=== PATIENT | female | born 1935 | race Asian ===

== ENCOUNTER 2019-07-17 15:05 | Inpatient (IN) | payer MEDICAID, MEDICARE ==
[~2019-07-17] VITALS: Ht 152.4 cm; Wt 37.6 kg
[~2019-07-17 15:05] MED LIST: ACET-2067 PO; ALBU8.5H8 IH; AMLO5TAB9 PO; BISA10SU95 RC; CARB1TAB39 PO; CARV3.12 PO; CLON0.1T PO; FURO-152 PO; HUMULIN R SQ; HYDR-3326 PO; IBUP-1955 PO; MAG-149 PO; MAGN400O6 PO; NA P133E RC; PANT40TA4 PO; SELE5CAP PO; VALS80TA2 PO
[2019-07-17 15:39] LABS: BASOPHILS # (AUTO) 0.1 K/uL (0.0-8.0); BASOPHILS % (AUTO) 0.8 % (0.0-2.0); EOSINOPHILS % (AUTO) 0.4 % (0.0-7.0); HEMATOCRIT 39.2 % (31.2-41.9); HEMOGLOBIN 13.3 g/dL (10.9-14.3); LYMPHOCYTES # (AUTO) 1.4 K/uL (20.0-40.0); LYMPHOCYTES % (AUTO) 16.1 % (20.5-51.5); MEAN CORPUSCULAR HEMOGLOBIN 29.6 uug (24.7-32.8); MEAN CORPUSCULAR HGB CONC 34 g/dL (32.3-35.6); MEAN CORPUSCULAR VOLUME 86.9 fL (75.5-95.3); MONOCYTES # (AUTO) 0.7 K/uL (2.0-10.0); MONOCYTES % (AUTO) 7.9 % (0.0-11.0); NEUTROPHILS # (AUTO) 6.7 K/uL (1.8-8.9); NEUTROPHILS % (AUTO) 74.8 % (38.5-71.5); PLATELET COUNT (AUTO) 214 K/uL (179-408); RED BLOOD CELL COUNT(AUTO) 4.51 MIL/uL (3.63-4.92)
[2019-07-17 15:51] LABS: CREATININE 1.2 mg/dL (0.6-1.3); POTASSIUM 3.6 mmol/L (3.5-5.1)
[2019-07-17 16:06] LABS: BILIRUBIN,DIRECT 0.1 mg/dL (0.0-0.2); BILIRUBIN,TOTAL 0.3 mg/dL (0.2-1.0); TOTAL PROTEIN, SERUM 7.8 g/dL (6.4-8.2)
[2019-07-17] MEDS ORDERED: LORA-258 PO (16:06)
[2019-07-17] MEDS ORDERED: HYDR-4384 PO (16:06)
[2019-07-17] MEDS ORDERED: ATROPINE SL (16:06)
[2019-07-17] MEDS ORDERED: RANI-655 PO (16:06)
[2019-07-17] MEDS ORDERED: LOSA25TA27 PO (16:06)
[2019-07-17] MEDS ORDERED: QUET25TA PO (16:06)
[2019-07-17] MEDS ORDERED: AMLO5TAB9 PO (16:06)
[2019-07-17] MEDS ORDERED: QUET50TA PO (16:06)
[2019-07-17] MEDS ORDERED: CARV6.252 PO (16:06)
[2019-07-17] MEDS ORDERED: ZOLP10TA2 PO (16:06)
[2019-07-17] MEDS ORDERED: DOCU250C88 PO (16:06)
[2019-07-17] MEDS ORDERED: ACET650S13 RC (16:06)
[2019-07-17] MEDS ORDERED: SUCR1ORA4 PO (16:06)
[2019-07-17] MEDS ORDERED: DEXL60CA3 PO (16:06)
[2019-07-17] MEDS ORDERED: SENN-261 PO (16:06)
[2019-07-17] MEDS ORDERED: CELE200C PO (16:06)
[2019-07-17] MEDS ORDERED: VALS160T29 PO (16:06)
[2019-07-17] MEDS ORDERED: MORP20SO PO (16:06)
[2019-07-17] MEDS ORDERED: GLUC1KIT IJ (16:06)
[2019-07-17] MEDS ORDERED: FURO-152 PO (16:06)
[2019-07-17] MEDS ORDERED: PROC25SU29 RC (16:06)
[2019-07-17] MEDS ORDERED: LORA-259 PO (16:06)
[2019-07-17] MEDS ORDERED: MIRT15TA7 PO (16:06)
[2019-07-17] MEDS ORDERED: NYST15CR TP (16:06)
[2019-07-17] MEDS ORDERED: IBUP-1955 PO (16:06)
[2019-07-17] MEDS ORDERED: levoFLOXacin 750 MG/D5W 150 ML PIGGYBACK IV ONE (16:15)
[2019-07-17] MEDS ORDERED: levoFLOXacin 750MG/D5W 150 ML IV ONE (16:35)
--- NOTE | 2019-07-17 16:41 | NUR ---
Patient's [email or web address]
--- NOTE | 2019-07-17 18:16 | NUR ---
Patient is incontinent of urine , ER Dr Verde notified. No orders for straight catheter, Dr Verde is aware.
--- NOTE | 2019-07-17 18:21 | NUR ---
.Betzaida-anal care done. Patient will leave ER as soon as possible
[2019-07-17 19:50] VITALS: BP 115/89
[2019-07-17] MEDS ORDERED: LORAZEPAM 0.5 MG TABLET PO PRN (21:45)
[2019-07-17] MEDS ORDERED: ZOLPIDEM 5 MG TABLET PO PRN (21:45)
[2019-07-17] MEDS ORDERED: ACETAMINOPHEN 325 MG TABLET PO PRN (21:45)
[2019-07-18 04:46] VITALS: BP 132/62
[2019-07-18 05:58] LABS: BASOPHILS % (AUTO) 0.3 % (0.0-2.0); EOSINOPHILS % (AUTO) 0.3 % (0.0-7.0); HEMOGLOBIN 13.2 g/dL (10.9-14.3); LYMPHOCYTES # (AUTO) 1.1 K/uL (20.0-40.0); LYMPHOCYTES % (AUTO) 16.7 % (20.5-51.5); MEAN CORPUSCULAR HEMOGLOBIN 29.4 uug (24.7-32.8); MEAN CORPUSCULAR HGB CONC 34 g/dL (32.3-35.6); MEAN CORPUSCULAR VOLUME 86.8 fL (75.5-95.3); MONOCYTES # (AUTO) 0.7 K/uL (2.0-10.0); MONOCYTES % (AUTO) 9.7 % (0.0-11.0); PLATELET COUNT (AUTO) 198 K/uL (179-408); RED BLOOD CELL COUNT(AUTO) 4.49 MIL/uL (3.63-4.92); WHITE BLOOD COUNT (AUTO) 6.8 K/uL (3.8-11.8)
[2019-07-18 06:25] LABS: CREATININE 1.1 mg/dL (0.6-1.3); MAGNESIUM 2.1 mg/dL (1.8-2.4); PHOSPHOROUS 3.2 mg/dL (2.5-4.9); POTASSIUM 3.9 mmol/L (3.5-5.1)
[2019-07-18] MEDS ORDERED: ZOLPIDEM 5 MG TABLET PO PRN (07:15)
[2019-07-18] MEDS ORDERED: PROCHLORPERAZINE MALEATE 25 MG SUPP.RECT RC PRN (07:30)
[2019-07-18] MEDS ORDERED: LORAZEPAM 0.5 MG TABLET PO PRN (07:30)
[2019-07-18] MEDS ORDERED: NYSTATIN CREAM 30 GM TUBE TP PRN (07:30)
[2019-07-18] MEDS ORDERED: IBUPROFEN 600 MG TABLET PO PRN (07:30)
[2019-07-18] MEDS ORDERED: ACETAMINOPHEN 650 MG SUPP.RECT RC PRN (07:30)
[2019-07-18] MEDS ORDERED: MORPHINE SULFATE 20 MG/1 ML ORAL LIQ. PO PRN (07:30)
[2019-07-18] MEDS ORDERED: ATROPINE SULFATE 1% OPHT DROP 2 ML SL PRN (07:30)
[2019-07-18] MEDS ORDERED: HYDROCODONE/APAP 5-325MG TABLET PO PRN (07:30)
[2019-07-18] MEDS ORDERED: FLEET ENEMA 133 ML BOTTLE RC PRN (07:30)
[2019-07-18] MEDS ORDERED: BISACODYL 10 MG SUPP.RECT RC PRN (07:30)
[2019-07-18] MEDS ORDERED: GLUCAGON,HUMAN RECOMBINANT 1 MG VIAL IM PRN (07:30)
--- NOTE | 2019-07-18 07:39 | NUR ---
Received patient in bed, asleep, No signs of Distress noted. No SOB. No signs of Pain or discomfort. Kept the bed in lowest position, call light within easy reach. Will continue to monitor.
[2019-07-18] MEDS: SUCRALFATE 1 G/10 ML LIQUID UDC PO SCH (07:51)
[2019-07-18] MEDS: PANTOPRAZOLE SODIUM 40 MG TABLET.DR PO SCH (07:52)
[2019-07-18] MEDS: CARVEDILOL 6.25 MG TABLET PO SCH ×2 (08:08→17:13)
[2019-07-18] MEDS: FUROSEMIDE 20 MG TABLET PO SCH (08:08)
[2019-07-18] MEDS: DOCUSATE SODIUM 250 MG CAPSULE PO SCH ×2 (08:08→16:52)
[2019-07-18] MEDS: SENNOSIDES 1 TABLET PO SCH ×2 (08:09→20:41)
[2019-07-18] MEDS ORDERED: CELECOXIB 200 MG CAPSULE PO SCH (08:58)
[2019-07-18] MEDS ORDERED: CARBIDOPA/LEVODOPA CR 25-100MG TABLET.SA PO SCH (09:00)
[2019-07-18] MEDS ORDERED: LOSARTAN POTASSIUM 25 MG TABLET PO SCH (09:00)
[2019-07-18] MEDS ORDERED: QUETIAPINE FUMARATE 25 MG TABLET PO SCH (09:00)
[2019-07-18] MEDS ORDERED: VALSARTAN 160 MG TABLET PO SCH (09:00)
[2019-07-18] MEDS ORDERED: LOSARTAN POTASSIUM 50 MG TABLET PO SCH (09:00)
[2019-07-18] MEDS: AMLODIPINE 5 MG TABLET PO SCH (09:18)
[2019-07-18] MEDS: CARBIDOPA/LEVODOPA 25-100MG TABLET PO SCH ×2 (09:18→16:52)
[2019-07-18] MEDS: LORAZEPAM 1 MG TABLET PO SCH ×2 (11:09→17:12)
[2019-07-18 12:00] VITALS: BP 143/72
[2019-07-18 16:50] LABS: *BILIRUBIN,URIN NEGATIVE (NEGATIVE); *BLOOD, URINE TRACE (NEGATIVE); *CLARITY,URINE CLEAR (CLEAR); *COLOR,URINE YELLOW (YELLOW); *KETONES,URINE NEGATIVE (NEGATIVE); *UROBILINOGEN,URINE 0.2 E.U./dl (NORMAL); LEUKOCYTE ESTERASE ,URINE NEGATIVE (NEGATIVE); NITRITE, URINE NEGATIVE (NEGATIVE); UGLUCOSE NEGATIVE (NEGATIVE)
[2019-07-18] MEDS: QUETIAPINE FUMARATE 25 MG TABLET PO SCH (16:52)
[2019-07-18 16:59] LABS: BACTERIA,URINE NONE SEEN /HPF (NONE SEEN); RBC,URINE 0-3 /HPF (0-3); SQUAMOUS EPITHELIAL CELL,UR FEW /HPF (NONE SEEN); WBC,URINE NONE SEEN /HPF (0-3)
--- NOTE | 2019-07-18 18:14 | NUR ---
Patient in bed, awake and responsive. No signs of distress noted. No SOB. saturating 96% on Room Air. No complain of Pain or discomfort. All due medications given as ordered. kept clean and comfortable. Kept the call light within easy reach. Will endorse to Oncoming Nurse.
--- NOTE | 2019-07-18 20:00 | NUR ---
RECEIVED PATIENT AWAKE IN BED. ALERT TO SELF ONLY. CONFUSED AND DISORIENTED. SON AT BEDSIDE. PATIENT ON ISOLATION FOR DROPLET PRECAUTIONS. VSS. H/L INTACT AND PATENT. BED ALARM ON. CALL LIGHT IN REACH. ALL NEEDS ATTENDED. WILL CONTINUE TO MONITOR AND ASSESS,
[2019-07-18 20:44] VITALS: BP 155/75
[2019-07-18] MEDS ORDERED: ZOLPIDEM 5 MG TABLET PO SCH (21:00)
[2019-07-18] MEDS ORDERED: FAMOTIDINE 20 MG TABLET PO SCH (21:00)
[2019-07-18] MEDS ORDERED: MIRTAZAPINE 15 MG TABLET PO SCH (21:00)
[2019-07-19] MEDS: LORAZEPAM 1 MG TABLET PO SCH ×3 (05:35→12:00)
--- NOTE | 2019-07-19 05:36 | NUR ---
PATIENT ASLEEP IN BED. SLEPT WELL THROUGHOUT THE NIGHT. VSS. BED ALARM ON. ALL NEEDS ATTENDED. WILL CONTINUE TO MONITOR AND ASSESS,
[2019-07-19 05:43] VITALS: BP 142/60
[2019-07-19] MEDS: PANTOPRAZOLE SODIUM 40 MG TABLET.DR PO SCH (06:28)
[2019-07-19] MEDS: AMLODIPINE 5 MG TABLET PO SCH (08:34)
[2019-07-19] MEDS: SENNOSIDES 1 TABLET PO SCH (08:34)
[2019-07-19] MEDS: CARBIDOPA/LEVODOPA 25-100MG TABLET PO SCH (08:35)
[2019-07-19] MEDS: CARVEDILOL 6.25 MG TABLET PO SCH (08:35)
[2019-07-19] MEDS: SUCRALFATE 1 G/10 ML LIQUID UDC PO SCH (08:36)
[2019-07-19] MEDS: DOCUSATE SODIUM 250 MG CAPSULE PO SCH (08:36)
[2019-07-19] MEDS: FUROSEMIDE 20 MG TABLET PO SCH (08:36)
[2019-07-19] MEDS: QUETIAPINE FUMARATE 25 MG TABLET PO SCH (08:36)
[2019-07-19 11:00] VITALS: BP 133/57
--- NOTE | 2019-07-19 12:10 | NUR ---
Patient discharged to [facility] assisted via ambulance in stable condition with no signs of distress ; report given to rn typesetting supervisor; patient with stable vital signs; patient at baseline mental status. belongings and valuables given to son.
[2019-07-19] MEDS ORDERED: levoFLOXacin 750MG/D5W 750 MG in PREMIXED 1 EACH IV SCH (16:00)
== END 2019-07-19 12:10 | DRG 139 ==
LOC: ER 15:12 → MEDSURG3 18:30
PROVIDERS: ADMIT Internal Medicine; ATTEND Internal Medicine
DX: J18.9 Pneumonia, unspecified organism (principal); N17.0 Acute kidney failure with tubular necrosis; I50.9 Heart failure, unspecified; I11.0 Hypertensive heart disease with heart failure; E11.9 Type 2 diabetes mellitus without complications; F02.80 Dementia in other diseases classified elsewhere, unspecified severity, without behavioral disturbance, psychotic disturbance, mood disturbance, and anxiety; G31.83 Neurocognitive disorder with Lewy bodies; F03.90 Unspecified dementia, unspecified severity, without behavioral disturbance, psychotic disturbance, mood disturbance, and anxiety; I10 Essential (primary) hypertension; M19.90 Unspecified osteoarthritis, unspecified site; Z79.899 Other long term (current) drug therapy; K21.9 Gastro-esophageal reflux disease without esophagitis; R41.82 Altered mental status, unspecified
CPT/HCPCS: 36415; 70030-TC; 71045; 71250; 83605; 83735; 84100; 85025; 85730; 87040; 87086; 87400; 93005; A4663; G0378; J1956